=== PATIENT | male | born 1980 | race African-American/Black ===

== ENCOUNTER 2019-10-24 05:09 | Day surgery (SDC) | payer OTHER ==
[~2019-10-24] VITALS: Ht 182.9 cm; Wt 77.1 kg
[2019-10-24 07:54] VITALS: BP 110/66; Ht 182.9 cm; Wt 77.1 kg
--- NOTE | 2019-10-24 16:30 | NUR ---
PATIENT AMBULATES TO BATHROOM AND VOIDS LARGE AMOUNT IN TOILET WITHOUT DIFFICULTY. PATIENT AMBULATES WITHOUT UNSTEADINESS OR DIZZINESS. RIGHT AC PIV DC'D WITH TIP INTACT. PATIENT DRESSING IN ADC CLOTHING
--- NOTE | 2019-10-24 19:01 | HP ---
PATIENT: ROCAEL HYDE MEDICAL RECORD: [id number] ACCOUNT: [id number] LOCATION:D[facility] : 78 ADMISSION DATE: 10/24/19 PCP: No PCP HISTORY AND PHYSICAL EXAMINATION Cc: Hernias Addendum: HISTORY OF PRESENT ILLNESS: I saw the patient in the holding area. He has symptomatic inguinal hernias, left greater than right. Each one is reducible. He states that they have been enlarging. He additionally has a supraumbilical ventral hernia that I am going to fix without mesh. The supraumbilical hernia is going to prevent me from performing a laparoscopic repair the way I do laparoscopic inguinal hernia repairs with mesh. The risks, possible complications and alternatives to the procedure were discussed with the patient. He elects to proceed. The discussion specifically included, but was not limited to, bleeding requiring emergency reoperation, infection, intestinal injury as well as chronic pain. I outlined how the procedures are performed. TRANSINT:[id number] Voice Confirmation ID: [id number] DOCUMENT ID: [id number] GUILLERMO WALDEN MD at 1901 CC: [id number] DICTATION DATE: 10/24/19 1045 CIGARETTE BOOK MAKER: 10/24/19 1133 [facility] 10/24/19 [facility] [address] [place] [address]
--- NOTE | 2019-10-24 19:01 | OP ---
PATIENT NAME: ROCAEL HYDE MEDICAL RECORD: [id number] :78 LOCATION:[facility] ADMISSION DATE: SURGEON: GUILLERMO WALDEN MD DATE OF OPERATION: 10/24/2019 PREOPERATIVE DIAGNOSES: 1. Symptomatic bilateral inguinal hernias. 2. Symptomatic ventral hernia. POSTOPERATIVE DIAGNOSES: 1. Symptomatic bilateral indirect inguinal hernias. 2. Bilateral cord lipomas. 3. Incarcerated supraumbilical ventral hernia. PROCEDURES: 1. Open bilateral non-incarcerated indirect inguinal hernia repairs with bilayered preperitoneal polypropylene mesh. 2. Excision of bilateral cord lipomas. 3. Open repair of incarcerated supraumbilical ventral hernia without mesh. SURGEON: Guillermo Walden MD CHAR FILTER TANK TENDER: None. BLOOD LOSS: Minimal. ANESTHESIA: General. COMPLICATIONS: None. The risks, possible complications and alternatives to the procedure were explained to the patient. He elects to proceed. I specifically discussed with him preoperatively that we would not be performing this procedure laparoscopically, but instead we will be performing an open procedure and that we would not be using mesh at the supraumbilical hernia defect, but we would be using mesh in the inguinal areas and he understood this. We specifically discussed the risk of chronic pain, reherniation, mesh infection. OPERATIVE COURSE: The patient was conveyed to the operating room electively on 10/24/2019. General anesthesia was induced by anesthesia staff. The abdomen and genitals were sterilely prepped and draped. A transverse incision was accomplished in the right inguinal area. Sharp dissection was carried down through skin and subcutaneous tissues as well as Mercedez's fascia. The external oblique aponeurosis was opened along the direction of its fibers. I bluntly dissected down through the internal oblique and transversus abdominis muscles. A preperitoneal pocket was fashioned bluntly. There was no direct component. There was an indirect hernia, which was reduced in its entirety. I entered the hernia sac. I then ligated the sac highly with a pursestring 3-0 Vicryl suture. There was a cord lipoma. I clamped the cord lipoma highly and divided distal to this. I then ligated the pedicle to the cord lipoma with a suture ligature of 3-0 Vicryl. I then cut 2 ovals out of a polypropylene mesh. The 2 ovals were sutured together one on top of the other with a running #1 Surgidacs. The mesh was placed in the preperitoneal space. Once I was satisfied with placement of the mesh, I allowed the muscular layers to come together over the mesh. The internal oblique and transverse abdominis muscles were then sutured together OPERATIVE REPORT [id number] ROCAEL HYDE with a portion of the underlying mesh with interrupted horizontal mattress 0 Surgidacs. The external oblique aponeurosis was closed with running #1 Vicryls. Mercedez's fascia was approximated with interrupted 3-0 Vicryls. The subdermis was approximated with interrupted 3-0 Vicryls. The skin was approximated with a running intracuticular 3-0 Vicryl. I then went around to the left side. A transverse incision was accomplished in the left groin. Sharp dissection was carried down through the skin and subcutaneous tissue as well as Mercedez's fascia. I incised the external oblique aponeurosis along the direction of its fibers. I bluntly dissected down through the internal oblique and transverse abdominis muscles. A preperitoneal pocket was fashioned bluntly. There was no direct component. There was an indirect hernia. This was reduced in its entirety. I entered the hernia sharply. There was no sliding component. I then ligated the hernia sac highly with a 3-0 Vicryl suture. There was a cord lipoma. I then clamped across this highly. I transected the cord lipoma distal to this. I then ligated the pedicle with a suture ligature of 3-0 Vicryl. I then cut 2 ovals out of a polypropylene mesh. The 2 ovals were sutured together one on top of the other with a running #1 Surgidac. The mesh was placed in the preperitoneal space. Once I was satisfied with placement of the mesh, I allowed the muscular layers to come together over the mesh. The internal oblique and transverse abdominis muscles were approximated with multiple interrupted horizontal mattress 0 Surgidacs. I incorporated a portion of the mesh with these sutures. At no time during this operation was there any apparent nerve injury or entrapment. The external oblique aponeurosis was closed with running #1 Vicryls. The Mercedez's fascia was approximated with interrupted 3-0 Vicryls. The subdermis was approximated with interrupted 3-0 Vicryls. The skin was approximated with a running intracuticular 3-0 Vicryl. Attention was then turned to the supraumbilical ventral hernia. An incision was accomplished on the anterior surface of the umbilicus. I then retracted cephalad. I then was able to visualize the hernia sac. I dissected around the hernia sac. It was then entered sharply. There was a significant amount of incarcerated preperitoneal fat, which was excised with electrocautery. I then cleaned the fascia around the hernia defect. The hernia defect was initially closed with a horizontal mattress 0 Vicryl. I then oversewed this with a horizontal mattress 0-Surgidac for the final hernia repair. The skin at the umbilicus was closed with interrupted 3-0 Vicryls for the deep dermis as well as interrupted 4-0 Vicryl Rapide for the skin. Sterile dressings were applied. The patient was then extubated and conveyed to post-anesthesia care unit where he was in stable condition. He will be dismissed back to skilled nursing on [place] as well as [place]. There is no need for him to follow up with me in the office unless he develops a complication related to this operative procedure. The umbilical sutures should fall out on their own in 2 to 3 weeks. TRANSINT:[id number] Voice Confirmation ID: [id number] DOCUMENT ID: [id number] cc: Dr. Danny Cruz [facility]. OPERATIVE REPORT [id number] ROCAEL HYDE, GUILLERMO RAMOS at 1901 CC: [id number] DICTATION DATE: 10/24/19 1332 DIE MECHANIC: 10/24/19 1412 [facility] 10/24/19 [facility] [address] [place] [address]
== END 2019-10-24 16:45 | disposition home or self-care (01) ==
LOC: D.OPS 05:09
PROVIDERS: ATTEND Surgery
DX: K40.20 Bilateral inguinal hernia, without obstruction or gangrene, not specified as recurrent (principal); K43.9 Ventral hernia without obstruction or gangrene; D17.9 Benign lipomatous neoplasm, unspecified